=== PATIENT | female | born 1980 | race Two or more races ===

== ENCOUNTER 2024-06-04 12:30 | Emergency (ER) | payer MEDICAID ==
[~2024-06-04] VITALS: Ht 121.9 cm; Wt 62.9 kg
[2024-06-04 13:18] VITALS: TEMP 98.1
--- NOTE | 2024-06-04 13:24 | ED.PDOC ---
HPI Comments A 43 YEAR OLD FEMALE PRESENTS TO THE ED WITH COMPLAINT OF LACERATION OF RIGHT HAND. PATIENT STATES SHE HAS WAS HELPING HER MOVE A METAL SHEET AND IT ACCIDENTALLY FELL AND CUT HER RIGHT HAND. BLEEDING IS CONTROLLED AT THIS TIME. PT IS ABLE TO MOVE HER RIGHT HAND WITH NORMAL ROM. PATIENT DENIES FEVER, CHILLS, SHORTNESS OF BREATH, CHEST PAIN, ABDOMINAL PAIN, NAUSEA, VOMITING, HEADACHE, OR OTHER COMPLAINTS. NO OTHER SYMPTOMS OR MODIFYING FACTORS AT THIS TIME. PATIENT IS ALERT, ORIENTED X 4, AND HAS STEADY GAIT. Chief Complaint: Laceration Time Seen by MD: 12:55 Reviewed Notes: Nurses Notes, Medications, Allergies Allergies: Coded Allergies: NO KNOWN ALLERGIES (Unverified , 06/04/24) Home Meds Active Scripts Naproxen (Naproxen) 500 Mg Tab, 500 MG PO BID, #20 TAB Prov:TAMMIE COOMBS 06/04/24 Cephalexin Monohydrate (Cephalexin) 500 Mg Cap, 1 CAP PO QID, #28 CAP Prov:TAMMIE COOMBS 06/04/24 Information Source: Patient Mode of Arrival: Ambulatory Severity: Moderate Severity of Laceration: Controlled Bleeding Complexity: Simple Timing: Hours Prehospital treatment: None Laceration Location: Hand (RIGHT HAND) Mechanism: Metal Last Tetanus: UTD Laceration Length (cm): 5 Skin Type: Linear Depth of Injury: SQ Tendon Injury: 0% Capillary Refill: < 3 seconds Tender: Moderate Discharge: None Erythema: None Associated Signs and Symptoms: None Past Medical History PAST MEDICAL HISTORY: Denies Surgical History: Denies all surgeries FILTER PRESS TENDER History: No Pertinent FILTER PRESS TENDER History Family History Family History: Reviewed,noncontributory to illness Social History Smoker: Non-Smoker Alcohol: Denies ETOH Use Drugs: Denies Drug Use Lives In: Home Constitutional: reports: others (ANXIOUS ); denies: chills, diaphoresis, fatigue, fever, malaise, sweats, weakness EENTM: denies: blurred vision, double vision, ear bleeding, ear discharge, ear drainage, ear pain, ear ringing, eye pain, eye redness, hearing loss, mouth pain, mouth swelling, nasal discharge, nose bleeding, nose congestion, nose pain, photophobia, tearing, throat pain, throat swelling, voice changes, others Respiratory: denies: cough, hemoptysis, orthopnea, SOB at rest, shortness of breath, SOB with excertion, stridor, wheezing, others Cardiovascular: denies: chest pain, dizzy spells, diaphoresis, Dyspnea on exertion, edema, irregular heart beat, left arm pain, lightheadedness, palpitations, PND, syncope, others Gastrointestinal: denies: abdomen distended, abdominal pain, blood streaked bowels, constipated, diarrhea, dysphagia, difficulty swallowing, hematemesis, melena, nausea, poor appetite, poor fluid intake, rectal bleeding, rectal pain, vomiting, others Genitourinary: denies: abnormal vagina bleeding, burning, dyspareunia, dysuria, flank pain, frequency, hematuria, incontinence, pain, , vagina discharge, urgency, others Neurological: denies: dizziness, fainting, headache, left sided numbness, left sided weakness, numbness, paresthesia, pre-existing deficit, right sided numbness, right sided weakness, seizure, speech problems, tingling, tremors, weakness, others Musculoskeletal: denies: back pain, gout, joint pain, joint swelling, muscle pain, muscle stiffness, neck pain, others Integumetry: reports: laceration (LACERATION OF RIGHT HAND); denies: bruises, change in color, change in hair/nails, dryness, lesions, lumps, rash, wounds, others Allergic/Immunocompromised: denies: Difficulty Healing, Frequent Infections, Hives, Itching, others Hematologic/Lymphatic: denies: anemia, blood clots, easy bleeding, easy bruising, swollen glands, others Endocrine: denies: excessive hunger, excessive sweating, excessive thirst, excessive urination, flushing, intolerance to cold, intolerance to heat, unexplained weight gain, unexplained weight loss, others Psychiatric: denies: anxiety, bipolar disorder, depression, hopeless, panic disorder, schizophrenia, sleepless, suicidal, others All Other Systems: Reviewed and Negative Physical Exam General Appearance: No Apparent Distress, Normal, Other (ANXIOUS ) HEENT: Normal ENT Inspection, PERRL/EOMI, Pharynx Normal, TMs Normal Neck: Full Range of Motion, Non-Tender, Normal, Normal Inspection Respiratory: Chest Non-Tender, Lungs Clear, No Accessory Muscle Use, No Respiratory Distress, Normal Breath Sounds Cardiovascular: No Edema, No JVD, No Murmur, No Gallop, Normal Peripheral Pulses, Regular Rate/Rhythm Breast Exam: Deferred Gastrointestinal: No Organomegaly, Non Tender, No Pulsatile Mass, Normal Bowel Sounds, Soft Genitalia: Deferred Pelvic: Deferred Rectal: Deferred Extremities: No calf tenderness, Normal capillary refill, Normal range of motion, No pedal edema, Tender (AND LACERATION ON RIGHT HAND, NO BONY TENDERNESS, SWELLING AND DEFORMITY, NORMAL ROM. ) Musculoskeletal : Apperance: Normal Neurologic: Alert, water resources program director II-XII nml as Tested, No Motor Deficits, Normal Affect, Normal Mood, No Sensory Deficits Cerebellar Function: Normal Reflexes: Normal Skin: Dry, Lacerations (5CM LACERATION ON RIGHT VOLAR HAND, NO BLEEDING AND FB, NEUROVASCULAR INTACT. ), Normal Color, Warm Peripheral Pulses: 2+ carotid (R), 2+ carotid (L), 2+ Radial (R), 2+ Radial (L) Lymphatic: No Adenopathy Was a procedure done? Was a procedure done?: Yes Sedation Sedation?: No Laceration Repair : Location RIGHT HAND Length 5CM Anesthetic: Lidocaine, Without epi Laceration Repair Prep: Saline, by Irrigation Laceration Repair Wound Comple: epidermis/dermis repair Laceration Repair: Number of sutures (10), SQ, Size (4-0 ETHILON), Nylon, Simple, Bacitracin, Gauze Informed consent obtained: No Risks, benefits, and alternati: Yes Images 1 - Differential diagnosis Generic Laceration: Abrasion/Contusion, Laceration, Avulsion Differential Diagnosis: N/A X-Ray, Labs, Meds, VS Vital Signs Date Time Temp Pulse Resp B/P (MAP) Pulse Ox O2 Delivery O2 Flow Rate FiO2 06/04/24 13:18 98.1 104 18 168/107 (127) 100 98.1 06/04/24 13:18 104 18 100 Room Air 06/04/24 13:01 98.1 104 18 168/104 (125) 100 Time of 1ST Reevaluation: 13:50 Reevaluation 1ST: Improved Patient Education/Counseling: Diagnosis, Treatment, Need For Follow Up Family Education/Counseling: Diagnosis, Treatment, Need For Follow Up Medical Screening: No EMC Exist At This Time Departure 1 Departure Time of Disposition: 13:50 Impression: Primary Impression: Laceration of right hand Qualified Codes: S61.411A - Laceration without foreign body of right hand, initial encounter Disposition: 01 HOME / SELF CARE / HOMELESS Condition: Stable Additional Instructions: FOLLOW-UP WITH PCP IN 1 TO 2 DAYS. RETURN TO ED FOR ANY NEW OR WORSENING SYMPTOMS. e-Prescriptions Naproxen (Naproxen) 500 Mg Tab 500 MG PO BID, #20 TAB Prov: TAMMIE COOMBS 06/04/24 Cephalexin Monohydrate (Cephalexin) 500 Mg Cap 1 CAP PO QID, #28 CAP Prov: TAMMIE COOMBS 06/04/24 Discharged With: Self Critical Care Note Critical Care Time?: No Stability Stability form required: No I personally scribed for TAMMIE COOMBS ([email or web address]) on 06/04/24 at 13:24. Electronically submitted by Brent Hagan ([email or web address]). I personally scribed for TAMMIE COOMBS ([email or web address]) on 06/04/24 at 13:29. Electronically submitted by Brent Hagan ([email or web address]). TAMIME COOMBS Jun 04, 2024 13:24
[2024-06-04] MEDS ORDERED: NAPR-746 PO (13:31)
[2024-06-04] MEDS ORDERED: CEPH500C PO (13:31)
[2024-06-04 13:38] VITALS: BP 154/96; PULSE 96; RESP 18; O2SAT 100
== END 2024-06-04 13:43 | disposition home or self-care (01) ==
LOC: ER 12:30
DX: S61.411A Laceration without foreign body of right hand, initial encounter (principal); Z79.899 Other long term (current) drug therapy; W18.39XA Other fall on same level, initial encounter; Y93.89 Activity, other specified; Y92.89 Other specified places as the place of occurrence of the external cause; Y99.8 Other external cause status
CPT/HCPCS: 12002